=== PATIENT | female | born 1970 | race Caucasian/White ===

== ENCOUNTER 2018-04-18 11:08 | Outpatient (CLI) | payer OTHER | END 2018-04-18 20:39 | disposition home or self-care (01) | LOC: SMA 11:08 | PROVIDERS: ATTEND Family Medicine | DX: Z12.31 Encounter for screening mammogram for malignant neoplasm of breast (principal) | CPT/HCPCS: 77067 ==

== ENCOUNTER 2019-07-05 08:54 | Outpatient (CLI) | payer OTHER | END 2019-07-05 21:00 | disposition home or self-care (01) | LOC: SMA 08:54 | PROVIDERS: ATTEND Family Medicine | DX: Z12.31 Encounter for screening mammogram for malignant neoplasm of breast (principal) | CPT/HCPCS: 77067 ==

== ENCOUNTER 2020-12-09 09:02 | Outpatient (CLI) | payer OTHER | END 2020-12-09 20:22 | disposition home or self-care (01) | LOC: SMA 09:02 | PROVIDERS: ATTEND Family Medicine | DX: Z12.31 Encounter for screening mammogram for malignant neoplasm of breast (principal) | CPT/HCPCS: 77067 ==